=== PATIENT | female | born 2000 | race Caucasian/White ===

== ENCOUNTER → 2021-02-25 | Outpatient (REF) | payer OTHER ==
[2021-02-25 14:17] LABS: HEMATOCRIT 39.1 % (36.0-47.0); MEAN CORPUSCULAR HEMOGLOBIN 31.7 pg (27.0-33.0); MEAN CORPUSCULAR HGB CONC 33.2 g/dl (32.0-36.5); MEAN CORPUSCULAR VOLUME 95.4 fl (80.0-96.0); PLATELET COUNT, AUTOMATED 285 10^3/uL (150-450); WHITE BLOOD COUNT 10.7 10^3/uL (4.0-10.0)
[2021-02-25 15:20] LABS: CHLAMYDIA DNA AMPLIFICATION NEGATIVE (NEGATIVE); GC DNA AMPLIFICATION NEGATIVE (NEGATIVE)
[2021-02-28 08:11] LABS: HEPATITIS C VIRUS ABY INDEX < 0.0 INDEX (<0.8); HIV 1&2 SCREEN CENTAUR NEGATIVE (NEGATIVE)
== END ==
LOC: M PLALAB 11:28
PROVIDERS: ATTEND Obstetrics & Gynecology
DX: Z34.01 Encounter for supervision of normal first pregnancy, first trimester (principal); Z36.89 Encounter for other specified antenatal screening

== ENCOUNTER → 2021-04-27 | Outpatient (CLI) | payer BC ==
--- NOTE | 2021-04-27 09:25 | REP ---
INDICATION: ANATOMY. . COMPARISON: None. TECHNIQUE: Transabdominal obstetric sonography. FINDINGS: Scanning through the gravid uterus demonstrates a viable single intrauterine gestation in variable lie. motion is observed and heart rate is recorded at 143 beats per minute. A posterior placenta is seen, grade 0, without evidence of placenta previa. Closed cervical length is measured at 3.2 cm transabdominally. No extrauterine abnormality is observed. Amniotic fluid is subjectively normal. No anomaly is seen. The following anatomic structures are identified and felt to be sonographically unremarkable: cranium, choroid plexus, cavum, cerebellum and posterior fossa, face and profile, lungs, four-chamber heart with left and right ventricular outflow tract views, diaphragm, left-sided stomach, abdominal wall cord insertion, three-vessel umbilical cord, kidneys and bladder, spine, and upper and lower extremities. Biometry chart: BPD 4.4 cm, 19 weeks 1 day Head circumference 16.0 cm, 18 weeks 6 days Abdominal circumference 13.5 cm, 19 weeks 0 days Femur length 2.8 cm, 18 weeks 5 days Humeral length 2.8 cm, 19 weeks 0 days HC AC ratio normal 1.18 Cephalic index normal 0.76 Estimated weight 260 g, 0 lb 9 oz, 45th percentile for 18 weeks 6 days IMPRESSION: Viable single intrauterine gestation at 19 weeks 0 days by today's composite sonographic criteria. SAMIRA by today's sonography September 21, 2021. No complication identified. Expected gestational age estimate from known SAMIRA of September 22, 2021 is 18 weeks 6 days <Electronically signed by Edvin Little > 04/27/21 0927
== END ==
LOC: M WHC 07:57
PROVIDERS: ATTEND Obstetrics & Gynecology
DX: Z34.02 Encounter for supervision of normal first pregnancy, second trimester (principal); Z36.89 Encounter for other specified antenatal screening; Z3A.19 19 weeks gestation of pregnancy

== ENCOUNTER → 2021-05-03 | Outpatient (REF) | payer OTHER | LOC: M SFHCWAGY 12:58 | PROVIDERS: ATTEND Advanced Practice Midwife | DX: N39.0 Urinary tract infection, site not specified (principal) ==

== ENCOUNTER → 2021-06-09 | Outpatient (REF) | payer OTHER | LOC: M SFHCWAGY 16:33 | PROVIDERS: ATTEND Obstetrics & Gynecology | DX: Z34.02 Encounter for supervision of normal first pregnancy, second trimester (principal); Z3A.00 Weeks of gestation of pregnancy not specified ==

== ENCOUNTER → 2021-07-04 | Outpatient (CLI) | payer BC, OTHER ==
[2021-07-04 14:41] LABS: HEMATOCRIT 33.3 % (36.0-47.0); HEMOGLOBIN 10.9 g/dl (12.0-15.5); MEAN CORPUSCULAR HEMOGLOBIN 31.2 pg (27.0-33.0); MEAN CORPUSCULAR HGB CONC 32.7 g/dl (32.0-36.5); MEAN CORPUSCULAR VOLUME 95.4 fl (80.0-96.0); PLATELET COUNT, AUTOMATED 224 10^3/uL (150-450); RED BLOOD COUNT 3.49 10^6/uL (4.00-5.40)
== END ==
LOC: M PLALAB 10:12
PROVIDERS: ATTEND Obstetrics & Gynecology
DX: Z34.02 Encounter for supervision of normal first pregnancy, second trimester (principal); Z36.89 Encounter for other specified antenatal screening

== ENCOUNTER → 2021-07-04 | Outpatient (REF) | payer BC, OTHER | LOC: M SFHCWAGY 13:17 | PROVIDERS: ATTEND Advanced Practice Midwife | DX: O23.40 Unspecified infection of urinary tract in pregnancy, unspecified trimester (principal); Z3A.26 26 weeks gestation of pregnancy ==

== ENCOUNTER → 2021-08-24 | Outpatient (REF) | payer BC, OTHER | LOC: M SFHCWAGY 12:37 | PROVIDERS: ATTEND Advanced Practice Midwife | DX: Z34.03 Encounter for supervision of normal first pregnancy, third trimester (principal) ==

== ENCOUNTER 2021-09-23 14:55 | Inpatient (IN) | payer BC, OTHER ==
[2021-09-23] VITALS (16 sets, daily range): BP systolic 97–170; BP diastolic 56–101
[~2021-09-23] VITALS: Ht 162.6 cm; Wt 65.2 kg
--- OUTSIDE RECORDS SUMMARY | 2021-09-23 15:00 | CCD ---
Author Author [facility] Organization [facility] Address Unknown Phone Unavailable Care Team Providers Care Photographer Apprentice Name Role Phone Dmitriy Harvey Unavailable PROBLEMS Type Condition ICD9-CM Code [id number] Code Onset Dates Condition S tatus W/U Status Risk SNOMED Code Notes Problem Supervision of other normal Z34.80 Ac tive confirm [id number] ALLERGIES Allergen (clinical drug ingredient) Drug/Non Drug Allergy do cumented on EMR Reaction Allergy Type Onset Date Status amoxicillin / clavulanate Augmentin([facility] Code:[address]-92) Unkn own Drug Allergy Active ENCOUNTERS from 1998 to 2021-09-17 Encounter Location Date Provider Diagnosis [facility] [address] [place] [address] [place] [address] Sep, Dmitriy Harvey Encounter for superv ision of normal first in third trimester Z34.03 and 38 weeks gestation of Z3A.38 IMMUNIZATIONS Vaccine Route Administration Date Status TDAP 0.5mL Boostrix IM Intramuscular Jul 19, 2021 Administere d SOCIAL HISTORY Tobacco Use: Social History Observation Description Date Details (start date - stop date) Never Smoker Sex Assigned At : Social History Observation Description Sex Assigned At Unknown Domestic Violence: Question Answer Notes Status: No history of abuse Alcohol Screening: Question Answer Notes Did you have a drink containing alcohol in the past year? No Points 0 Interpretation Negative Tobacco Use: Question Answer Notes Are you a: never smoker REASON FOR REFERRAL No Information VITAL SIGNS Weight 142.0 lbs Sep, Weight-kg 64.41 kg Sep, Height 64 in Sep, BMI 24.374 kg/m2 Sep, Blood pressure systolic 116 mm Hg Sep, Blood pressure diastolic 80 mm Hg Sep, MEDICATIONS Medication SIG (Take, Route, Frequency, Duration) Notes Start Da te End Date Status Macrobid 100 MG capsule Orally BID for 7 days March, Not-Taking 27-1 MG 1 tablet Orally Once a day Active Cephalexin 500 MG 1 capsule Orally every 8 hours for 7 days May, Not-Taking Nitrofurantoin Macrocrystal 100 MG 1 capsule at bedtim e with food or milk Orally bid for 7 days Feb, Not-Taking Macrobid 100 MG 1 capsule at bedtime with food Orally BID for 7 days Jun, Not-Taking PROCEDURES No Information RESULTS No Results REASON FOR VISIT 1 WK PN MEDICAL (GENERAL) HISTORY Type Description Date Surgical History Bilateral tympanostomy 01/31/2000 Hospitalization History surgery Goals Section No Information Health Concerns No Information MEDICAL EQUIPMENT No Information MENTAL STATUS No Information FUNCTIONAL STATUS No Information ASSESSMENTS Encounter Date Diagnosis Assessment Notes Treatment Notes Treatm ent Clinical Notes Sep, Encounter for supervision of normal first in third trimester (ICD-10 - Z34.03) Sep, 38 weeks gestation of (ICD-10 - Z3A.38 ) PLAN OF TREATMENT Next Appt Details Provider Name:Ras Vaughan, 09:00:00 AM, [address] [facility], , [place], [address], Insurance Providers Payer Name Payer Address Payer Phone Insured Name Patient Relati onship to Insured Coverage Start Date Coverage End Date [facility] [address] [facility] [id number] [place]
--- OUTSIDE RECORDS SUMMARY | 2021-09-23 15:00 | CCD ---
Author Author [facility] Organization [facility] Address Unknown Phone Unavailable Care Team Providers Care Reel Cutter Name Role Phone Alexus Ras Unavailable PROBLEMS Type Condition ICD9-CM Code [id number] Code Onset Dates Condition S tatus W/U Status Risk SNOMED Code Notes Problem Supervision of other normal Z34.80 Ac tive confirm [id number] ALLERGIES Allergen (clinical drug ingredient) Drug/Non Drug Allergy do cumented on EMR Reaction Allergy Type Onset Date Status amoxicillin / clavulanate Augmentin([facility] Code:[address]-19) Unkn own Drug Allergy Active ENCOUNTERS from 1998 to 2021-07-12 Encounter Location Date Provider Diagnosis [facility] [address] [place] [address] [place] [address] Jul, Ras Vaughan IMMUNIZATIONS No Information SOCIAL HISTORY Tobacco Use: Social History Observation [...] REASON FOR REFERRAL No Information VITAL SIGNS No information MEDICATIONS Medication SIG (Take, Route, Frequency, Duration) Notes Start Da te End Date Status Cephalexin 500 MG 1 capsule Orally every 8 hours for 7 days May, Not-Taking Nitrofurantoin Macrocrystal 100 MG 1 capsule at bedtim e with food or milk Orally bid for 7 days Feb, Not-Taking 27-1 MG 1 tablet Orally Once a day Active Macrobid 100 MG 1 capsule at bedtime with food Orally BID for 7 days Jun, Not-Taking Macrobid 100 MG capsule Orally BID for 7 days March, Not-Taking PROCEDURES No Information RESULTS No Results REASON FOR VISIT Results MEDICAL (GENERAL) HISTORY Type Description Date Surgical History Bilateral tympanostomy 01/31/2000 Hospitalization History surgery Goals Section No Information Health Concerns No Information MEDICAL EQUIPMENT No Information MENTAL STATUS No Information FUNCTIONAL STATUS No Information ASSESSMENTS No Information PLAN OF TREATMENT Next Appt Details Provider Name:Mae Caro, 2021-07-06 4 08:00:00 AM, [address] [facility], , [place], [address], Insurance Providers Payer Name Payer Address Payer Phone Insured Name Patient Relati onship to Insured Coverage Start Date Coverage End Date [facility] [address] [facility] [id number] [place]
--- OUTSIDE RECORDS SUMMARY | 2021-09-23 15:00 | CCD | Continuity of Care Document ---
Author Author [facility] Organization [facility] Address Unknown Phone Unavailable Care Team Providers Care Air Tool Operator Name Role Phone Sheree Castaneda MD Unavailable Unavailable Allergies, Adverse Reactions, Alerts Substance Reaction Status Criticality POTASSIUM CLAVULANATE Hives/Skin Rash Active No Informa tion AMOXICILLIN TRIHYDRATE Hives/Skin Rash Active No Inform ation Medications Medication Instructions Dosage Effective Dates (start - stop) Sta tus Comments Sushma 24 Fe 1 mg-20 mcg (24)/75 mg (4) tablet take 1 t ablet by oral route every day 1.00 tablet - Active iron 18 mg tablet - Active Problems Condition Effective Dates (start - stop) Clinical Status C omments Human immunodeficiency virus [HIV] counseling Encounter for test, result negative Encounter for oth general cnsl and advice on contraception Encounter for surveillance of contraceptive pills Encntr for embedded processor exam (general) (routine) w/o abn findings Human immunodeficiency virus [HIV] counseling Encounter for oth general cnsl and advice on contraception Encounter for surveillance of contraceptive pills Encntr for embedded processor exam (general) (routine) w/o abn findings Human immunodeficiency virus [HIV] counseling Encounter for oth general cnsl and advice on contraception Encounter for surveillance of contraceptive pills Encntr for embedded processor exam (general) (routine) w/o abn findings Encounter for test, result negative Human immunodeficiency virus [HIV] counseling Encntr screen for infections w sexl mode of transmiss High risk heterosexual behavior Encounter for oth general cnsl and advice on contraception Encounter for initial prescription of contraceptive pills Procedures Procedure Date No Information Results Test Name Date and Time Measure Units Reference Range Abnormal Flag St atus Comments No Information Advance Directives Directive Yes / No Effective Date File Name No Information Encounters Encounter Description Practice Location Reason(s) For Visit Diagnose s Date Provider Providers Copied on Encounter [facility] [place], [address] [place], [place], [id number], [place] tel:[phone] NATE Mir No Information Leonel Bentley. [address] [place], [place], [id number], [place]. tel:[phone] [facility] [place], [address], [place], [id number], [place] tel:[phone] [facility] [place] Human immunodeficie ncy virus [HIV] counselingEncounter for test, result negativeEncounter for oth general cnsl and advice on contraceptionEncounter for surveillance of contraceptive pillsEncntr for embedded processor exam (general) (routine) w/o abn findings Stephenie Song. [address] [place], [place], [id number], [place]. tel:[phone] Referring Provider: Nohemi Casiano, [address], [place], [id number]. tel:[phone] [facility] [place], [address], [place], [id number], [place] tel:[phone] [facility] [place] Human immunodeficie ncy virus [HIV] counselingEncounter for oth general cnsl and advice on contraceptionEncounter for surveillance of contraceptive pillsEncntr for embedded processor exam (general) (routine) w/o abn findings Stephenie Song. [address] [place], [place], [id number], [place]. tel:[phone] Referring Provider: Nohemi Casiano, [address], [place], [id number]. tel:[phone] [facility] [place], [address] [place] [address], [id number], [place] tel:[phone] [facility] Human immunodeficie ncy virus [HIV] counselingEncounter for oth general cnsl and advice on contraceptionEncounter for surveillance of contraceptive pillsEncntr for embedded processor exam (general) (routine) w/o abn findings Nick Cleary. [address] [place], [place], [id number], [place]. tel:[phone] Referring Provider: Madiha Romero, [address] [place], [place], [id number]. tel:[phone] [facility], [address], [place], [id number], [place] tel:[phone] [facility] Encounter for pregn juan test, result negativeHuman immunodeficiency virus [HIV] counselingEncntr screen for infections w sexl mode of transmissHigh risk heterosexual behaviorEncounter for oth general cnsl and advice on contraceptionEncounter for initial prescription of contraceptive pills Nick Cleary. [address] [place], [place], [id number], [place]. tel:[phone] Referring Provider: Madiha Romero, [address] [place], [place], [id number]. tel:[phone] Family History Family Member Diagnosis Age At Onset 1st degree relative No hx of cancer of breast, colon, endome trium or ovary 1st degree relative No hx of osteoporosis 1st degree relative No hx of venous thromboembolism 1st degree relative No hx of coronary heart disease (female <65, male <55) Father Cancer, colon Father Hypertension Father Cancer, colon 51 Immunizations Vaccine Date Status Comments No Information Payers Payer name Insurance type Covered green party ID Authorization(s ) [facility] CI [id number] Social History Type Description Quantity Date Captured Comments Sex Female Smoking Status No Information Vital Signs Date / Time: Height Weight BMI Pulse Rate Blood Pressure Temperatu re Respiratory Rate Body Surface Area Head Circumference BMI percentile Pulse Ox In haled Ox No Information Chief Complaint And Reason For Visit No Information Reason For Referral Reason For Referral No Information Plan Of Treatment Date Type Action Status No Information History Of Present Illness Encounter Date Complaint History Of Present I llness No Information Functional Status Date Functional Assessment No Information Medications Administered Medication Instructions Dosage Effective Dates (start - stop) Sta tus Comments No Information Instructions Date Instruction Additional Informati on No Information Assessments Type Assessment Date No Information Goals Health Concern Goal Type Priority Status Date No Information Medical Equipment Description Device [place] Device Identifier Effective Raul es (start - stop) Status No Information Mental Status Date Cognitive Assessment No Information Health Concerns Observation Date No Information Concern Status Date No Information Physical Examination Exam Findings Details No Information
--- OUTSIDE RECORDS SUMMARY | 2021-09-23 15:00 | CCD ---
Author Author [facility] Organization [facility] Address Unknown Phone Unavailable Care Team Providers Care Supply Chain Business Analyst Name Role Phone Dmitriy Harvey Unavailable PROBLEMS Type Condition ICD9-CM Code [id number] Code Onset Dates Condition S tatus W/U Status Risk SNOMED Code Notes Problem Supervision of other normal Z34.80 Ac tive confirm [id number] ALLERGIES Allergen (clinical drug ingredient) Drug/Non Drug Allergy do cumented on EMR Reaction Allergy Type Onset Date Status amoxicillin / clavulanate Augmentin([facility] Code:[address]-76) Unkn own Drug Allergy Active ENCOUNTERS from 1998 to 2021-08-09 Encounter Location Date Provider Diagnosis [facility] [address] [place] [address] [place] [address] Jul, Dmitriy Harvey Encounter for superv ision of normal first , third trimester Z34.03 and 32 weeks gestation of Z3A.32 IMMUNIZATIONS Vaccine Route Administration Date Status TDAP [...] FOR REFERRAL No Information VITAL SIGNS Weight 137.2 lbs Jul, Height 64 in Jul, BMI 23.55 kg/m2 Jul, Blood pressure systolic 118 mm Hg Jul, Blood pressure diastolic 72 mm Hg Jul, MEDICATIONS Medication SIG (Take, Route, Frequency, Duration) Notes Start Da te End Date Status Cephalexin 500 MG 1 capsule Orally every 8 hours for 7 days May, Not-Taking Macrobid 100 MG capsule Orally BID for 7 days March, Not-Taking 27-1 MG 1 tablet Orally Once a day Active Macrobid 100 MG 1 capsule at bedtime with food Orally BID for 7 days Jun, Not-Taking Nitrofurantoin Macrocrystal 100 MG 1 capsule at bedtim e with food or milk Orally bid for 7 days Feb, Not-Taking PROCEDURES No Information RESULTS No Results REASON FOR VISIT 2 WK PN MEDICAL (GENERAL) HISTORY Type Description Date Surgical History Bilateral tympanostomy 01/31/2000 Hospitalization History surgery Goals Section No Information Health Concerns No Information MEDICAL EQUIPMENT No Information MENTAL STATUS No Information FUNCTIONAL STATUS No Information ASSESSMENTS Encounter Date Diagnosis Assessment Notes Treatment Notes Treatm ent Clinical Notes Jul, Encounter for supervision of normal first , third trimester (ICD-10 - Z34.03) Jul, 32 weeks gestation of (ICD-10 - Z3A.32 ) PLAN OF TREATMENT Next Appt Details Provider Name:Linda Hallman, 2021-08-17 08:40:00 AM, [address] [place] [address], [place], [address], Provider Name:Linda Hallman, 2021-08-24 08:40:00 AM, [address] [place] [address], [place], [address], Provider Name:Linda Hallman, 2021-09-01 08:40:00 AM, [address] [place] [address], [place], [address], Provider Name:Dmitriy Harvey, 2021-09-08 08:15:00 AM, [address] [place] [address], [place], [address], Provider Name:Dmitriy Harvey 2021-09-15 08:15:00 AM, [address] [facility], , [place], [address], Provider Name:Ras Vaughan, 09:00:00 AM, [address] [facility], , [place], [address], Insurance Providers Payer Name Payer Address Payer Phone Insured Name Patient Relati onship to Insured Coverage Start Date Coverage End Date [facility] [address] [facility] [id number] [employer]
--- OUTSIDE RECORDS SUMMARY | 2021-09-23 15:00 | CCD ---
Author Author [facility] Organization [facility] Address Unknown Phone Unavailable Care Team Providers Care Accounting Manager Name Role Phone Chaim DUVAL Unavailable Unavailable LETTIERE, Chaim BARRIENTOS Unavailable Unavailable LETTIERE, Chaim BARRIENTOS Unavailable Unavailable LETTIERE, Chaim BARRIENTOS Unavailable Unavailable LETTIERE, Chaim BARRIENTOS Unavailable Unavailable LETTIERE, Chaim BARRIENTOS Unavailable Unavailable LETTIERE, Chaim BARRIENTOS Unavailable Unavailable LETTIERE, Chaim BARRIENTOS Unavailable Unavailable LETTIERE, Chaim BARRIENTOS Unavailable Unavailable LETTIERE, Chaim BARRIENTOS Unavailable Unavailable LETTIERE, Chaim BECKFORD PA Unavailable Unavailable LETTIERE, Chaim BECKFORD PA Unavailable Unavailable LETTIERE, Chaim BECKFORD PA Unavailable Unavailable LETTIERE, Chaim BARRIENTOS Unavailable Unavailable LETTIERE, Chaim BARRIENTOS Unavailable Unavailable LETTIERE, Chaim BARRIENTOS Unavailable Unavailable LETTIERE, Chaim BARRIENTOS Unavailable Unavailable LETTIERE, Chaim BECKFORD PA Unavailable Unavailable LETTIERE, Chaim BARRIENTOS Unavailable Unavailable LETTIERE, Chaim BARRIENTOS Unavailable Unavailable LETTIERE, Chaim BARRIENTOS Unavailable Unavailable LETTIERE, A ANALY PA Unavailable Unavailable LETTIERE, A ANALY PA Unavailable Unavailable LETTIERE, A ANALY PA Unavailable Unavailable LETTIERE, A ANALY PA Unavailable Unavailable LETTIERE, A ANALY PA Unavailable Unavailable LETTIERE, A ANALY PA Unavailable Unavailable LETTIERE, A ANALY PA Unavailable Unavailable LETTIERE, A ANALY PA Unavailable Unavailable LETTIERE, A ANALY PA Unavailable Unavailable LETTIERE, A ANALY PA Unavailable Unavailable Dionisio LOVE MD Unavailable Unavailable Dionisio LOVE MD Unavailable Unavailable Dionisio LOVE MD Unavailable Unavailable Dioniiso LOVE MD Unavailable Unavailable Dionisio LOVE MD Unavailable Unavailable Dionisio LOVE MD Unavailable Unavailable Dionisio LOVE MD Unavailable Unavailable Dionisio LOVE MD Unavailable Unavailable Dionisio LOVE MD Unavailable Unavailable Dionisio LOVE MD Unavailable Unavailable Dionisio LOVE MD Unavailable Unavailable Dionisio LOVE MD Unavailable Unavailable Dionisio LOVE MD Unavailable Unavailable Dionisio LOVE MD Unavailable Unavailable Dionisio LOVE MD Unavailable Unavailable Dionisio LOVE MD Unavailable Unavailable Dionisio LOVE MD Unavailable Unavailable Dionisio LOVE MD Unavailable Unavailable Dionisio LOVE MD Unavailable Unavailable Dionisio LOVE MD Unavailable Unavailable Dionisio LOVE MD Unavailable Unavailable Dionisio LOVE MD Unavailable Unavailable Dionisio LOVE MD Unavailable Unavailable Dionisio LOVE MD Unavailable Unavailable Chaim Castaneda MD Unavailable Unavailable Chaim Castaneda MD Unavailable Unavailable Chaim Castaneda MD Unavailable Unavailable Chaim Castaneda MD Unavailable Unavailable Chaim Castaneda MD Unavailable Unavailable Chaim Castaneda MD Unavailable Unavailable Chaim Castaneda MD Unavailable Unavailable Chaim Castaneda MD Unavailable Unavailable Chaim Castaneda MD Unavailable Unavailable Chaim Castaneda MD Unavailable Unavailable Chaim Castaneda MD Unavailable Unavailable Chaim Castaneda MD Unavailable Unavailable Chaim Castaneda MD Unavailable Unavailable Chaim Castaneda MD Unavailable Unavailable Chaim Castaneda MD Unavailable Unavailable Chaim Castaneda MD Unavailable Unavailable Chaim Castaneda MD Unavailable Unavailable Chaim Castaneda MD Unavailable Unavailable Chaim Castaneda MD Unavailable Unavailable Chaim Castaneda MD Unavailable Unavailable Chaim Castaneda MD Unavailable Unavailable Chaim Castaneda MD Unavailable Unavailable Leonel, Chaim Bentley MD Unavailable Unavailable Leonel, Chaim Bentley MD Unavailable Unavailable Leonel, Chaim Bentley MD Unavailable Unavailable Leonel, Chaim Bentley MD Unavailable Unavailable Leonel, Chaim Bentley MD Unavailable Unavailable Leonel, Chaim Bentley MD Unavailable Unavailable Leonel, Chaim Bentley MD Unavailable Unavailable Leonel, Chaim Bentley MD Unavailable Unavailable Leonel, Chaim Bentley MD Unavailable Unavailable Leonel, Chaim Bentley MD Unavailable Unavailable Leonel, Chaim Bentley MD Unavailable Unavailable Leonel, Chaim Bentley MD Unavailable Unavailable Leonel, Chaim Bentley MD Unavailable Unavailable Leonel, Chaim Bentley MD Unavailable Unavailable Leonel, Chaim Bentley MD Unavailable Unavailable Leonel, Chaim Bentley MD Unavailable Unavailable Leonel, Chaim Bentley MD Unavailable Unavailable Leonel, Chaim Bentley MD Unavailable Unavailable Leonel, Chaim Bentley MD Unavailable Unavailable Leonel, Chaim Bentley MD Unavailable Unavailable Leonel, Chaim Bentley MD Unavailable Unavailable Leonel, Chaim Bentley MD Unavailable Unavailable Leonel, Chaim Bentley MD Unavailable Unavailable Leonel, Chaim Bentley MD Unavailable Unavailable Leonel, Chaim Bentley MD Unavailable Unavailable Leonel, Chaim Bentley MD Unavailable Unavailable Leonel, Chaim Bentley MD Unavailable Unavailable Leonel, Chaim Bentley MD Unavailable Unavailable Leonel, hCaim Bentley MD Unavailable Unavailable Leonel, Chaim Bentley MD Unavailable Unavailable Leonel, Chaim Bentley MD Unavailable Unavailable Leonel, Chaim Bentley MD Unavailable Unavailable Leonel, Chaim Bentley MD Unavailable Unavailable Leonel, Chaim Bentley MD Unavailable Unavailable Leonel, Chaim Bentley MD Unavailable Unavailable Leonel, Chaim Bentley MD Unavailable Unavailable Leonel, Chaim Bentely MD Unavailable Unavailable Leonel, Chaim Bentley MD Unavailable Unavailable Leonel, Chaim Bentley MD Unavailable Unavailable Leonel, Chaim Bentley MD Unavailable Unavailable Leonel, Chaim Bentley MD Unavailable Unavailable Leonel, Chaim Bentley MD Unavailable Unavailable Leonel, Chaim Bentley MD Unavailable Unavailable Leonel, Chaim Bentley MD Unavailable Unavailable Leonel, Chaim Bentley MD Unavailable Unavailable Leonel, Chaim Bentley MD Unavailable Unavailable Leonel, Chaim Bentley MD Unavailable Unavailable Leonel, Chaim Bentley MD Unavailable Unavailable Leonel, Chaim Bentley MD Unavailable Unavailable Leonel, Chaim Bentley MD Unavailable Unavailable Leonel, Chaim Bentley MD Unavailable Unavailable Leonel, Chaim Bentley MD Unavailable Unavailable Leonel, Chaim Bentley MD Unavailable Unavailable Leonel, Chaim Bentley MD Unavailable Unavailable Leonel, Chaim Bentley MD Unavailable Unavailable Leonel, Chaim Bentley MD Unavailable Unavailable Leonel, Chaim Bentley MD Unavailable Unavailable Leonel, Chaim Bentley MD Unavailable Unavailable Leonel, Chaim Bentley MD Unavailable Unavailable Leonel, Chaim Bentley MD Unavailable Unavailable Re-disclosure Warning The records that you are about to access may contain information from federally-assisted alcohol or drug abuse programs. If such information is present, then the following federally mandated warning applies: This information has been disclosed to you from records protected by federal confidentiality rules (42 CFR part 2). The federal rules prohibit you from making any further disclosure of this information unless further disclosure is expressly permitted by the written consent of the person to whom it pertains or as otherwise permitted by 42 CFR part 2. A general authorization for the release of medical or other information is NOT sufficient for this purpose. The Federal rules restrict any use of the information to criminally investigate or prosecute any alcohol or drug abuse patient.The records that you are about to access may contain highly sensitive health information, the redisclosure of which is protected by Article 27-F of the [facility] Public Health law. If you continue you may have access to information: Regarding HIV / AIDS; Provided by facilities licensed or operated by the [facility] Office of Mental Health; or Provided by the [facility] Office for People With Developmental Disabilities. If such information is present, then the following [facility] mandated warning applies: This information has been disclosed to you from confidential records which are protected by state law. State law prohibits you from making any further disclosure of this information without the specific written consent of the person to whom it pertains, or as otherwise permitted by law. Any unauthorized further disclosure in violation of state law may result in a fine or residential sentence or both. A general authorization for the release of medical or other information is NOT sufficient authorization for further disc losure. Family History Family Member Name Family Member Gender Family Member Status Date o f Status Description Data Source(s) Unknown Male Diagnosis 07/15/2020 12:00:00 AM EDT [facility] ([facility]) Unknown Male Diagnosis 05/29/2019 12:00:00 AM EDT [facility] ([facility]) Unknown Male Diagnosis 11/06/2017 12:00:00 AM EST [facility]Gen ([facility]) Unknown Unknown Problem MEDENT ([facility]) Encounters Encounter Providers Location Date Indications Data Source(s ) ( ESTOB) [facility] [address] [place] [address] 09/15/2021 12:00:00 AM EST eCW1 ([facility]) ( ESTOB) enter Est OB [address] [place] [address] 09/08/2021 12:00:00 AM EDT eCW1 ([facility]) Attender: Sheree Castaneda MD [facility] 1 09:57:00 AM EDT - 08/16/2021 09:57:00 AM EDT NextGen ([facility]) ( ESTOB) [facility] Est [facility] [address] [place] [address] 08/03/2021 12:00:00 AM EDT eCW1 ([facility]) ( ESTOB) enter Est OB [address] [place] [address] 07/19/2021 12:00:00 AM EDT eCW1 ([facility]) Outpatient Attender: ANALY caruso 07/10/2021 03:50:00 PM EDT [facility] ([facility]) [place] [address] [facility] [address] 07/08/2021 12:00:00 AM EDT eCW1 ([facility]) ( ESTOB) enter Est OB [address] [place] [address] 07/04/2021 12:00:00 AM EDT eCW1 ([facility]) [place] [address] [facility] [place] [address] 06/13/2021 12:00:00 AM EDT eCW1 ([facility]) ( ESTOB) [facility] Est [facility] [address] [place] [address] 06/09/2021 12:00:00 AM EDT eCW1 ([facility]) Unknown [address] [facility] [place] [address] 05/05/2021 12:00:00 AM EDT eCW1 ([facility]) ( ESTOB) enter Est OB [address] [place] [address] 05/03/2021 12:00:00 AM EDT eCW1 ([facility]) (WC ESTOB) [facility] Est [facility] [address] [place] [address] 04/05/2021 12:00:00 AM EDT eCW1 ([facility]) [place] [address] [facility] [address] 04/01/2021 12:00:00 AM EDT eCW1 ([facility]) Outpatient Attender: CAYLA LOVE MD 03/11 09:19:03 AM EDT - 03/11/2021 10:50:32 AM EDT DocuTap ([facility] ) (WC ESTOB) [facility] Est OB [address] [place] [address] 03/07/2021 12:00:00 AM EDT eCW1 ([facility]) [place] [address] [facility] [address] 02/28/2021 12:00:00 AM EDT eCW1 ([facility]) Unknown [address] [facility] [place] [address] 02/07/2021 12:00:00 AM EDT eCW1 ([facility]) ( ESTOB) enter Est OB [address] [place] [address] 02/07/2021 12:00:00 AM EDT eCW1 ([facility]) Att[facility]: [facility] 11:56:00 AM EDT - 08/16/2020 11:56:00 AM EDT NextGen ([facility]) Immunizations Vaccine Date Status Description Data Source(s) Tdap 07/19/2021 08:43:00 AM EDT completed e CW1 ([facility]) Tdap 07/19/2021 08:43:00 AM EDT completed e CW1 ([facility]) Tdap 07/19/2021 08:43:00 AM EDT completed e CW1 ([facility]) Tdap 07/19/2021 08:43:00 AM EDT completed e CW1 ([facility]) Tdap 07/19/2021 08:43:00 AM EDT completed e CW1 ([facility]) Medications Medication Brand Name Start Date Product Form Dose Route Admi nistrative Instructions Pharmacy Instructions Status Indications Reaction Description Data Source(s) NITROFURANTOIN, MACROCRYSTALS 25 MG / Ni trofurantoin, Monohydrate 75 MG Oral Capsule [Macrobid] Macrobid 100 MG Macrobid 100 MG 06/13/2021 12:00:00 AM EDT active Macrobid 100 MG eCW1 ([facility]) NITROFURANTOIN, MACROCRYSTALS 25 MG / Ni trofurantoin, Monohydrate 75 MG Oral Capsule [Macrobid] Macrobid 100 MG Macrobid 100 MG 06/13/2021 12:00:00 AM EDT suspended Macrobid 100 MG eCW1 ( [facility]) NITROFURANTOIN, MACROCRYSTALS 25 MG / Ni trofurantoin, Monohydrate 75 MG Oral Capsule [Macrobid] Macrobid 100 MG Macrobid 100 MG 06/13/2021 12:00:00 AM EDT suspended Macrobid 100 MG eCW1 ( [facility]) NITROFURANTOIN, MACROCRYSTALS 25 MG / Ni trofurantoin, Monohydrate 75 MG Oral Capsule [Macrobid] Macrobid 100 MG Macrobid 100 MG 06/13/2021 12:00:00 AM EDT suspended Macrobid 100 MG eCW1 ( [facility]) NITROFURANTOIN, MACROCRYSTALS 25 MG / Ni trofurantoin, Monohydrate 75 MG Oral Capsule [Macrobid] Macrobid 100 MG Macrobid 100 MG 06/13/2021 12:00:00 AM EDT active Macrobid 100 MG eCW1 ([facility]) NITROFURANTOIN, MACROCRYSTALS 25 MG / Ni trofurantoin, Monohydrate 75 MG Oral Capsule 100 mg NITROFURANTOIN [id number]/[id number] 06/13/2021 12:00:00 AM EDT ca psule 14 TAKE ONE CAPSULE BY MOUTH TWICE A DAY WITH FOOD FOR 7 DAYS TAKE ONE CAPSULE BY MOUTH TWICE A DAY WITH FOOD FOR 7 DAYS SOLD: 06/13/2021 [facility] NITROFURANTOIN, MACROCRYSTALS 25 MG / Ni trofurantoin, Monohydrate 75 MG Oral Capsule [Macrobid] Macrobid 100 MG Macrobid 100 MG 06/13/2021 12:00:00 AM EDT suspended Macrobid 100 MG eCW1 ( [facility]) NITROFURANTOIN, MACROCRYSTALS 25 MG / Ni trofurantoin, Monohydrate 75 MG Oral Capsule [Macrobid] Macrobid 100 MG Macrobid 100 MG 06/13/2021 12:00:00 AM EDT suspended Macrobid 100 MG eCW1 ( [facility]) NITROFURANTOIN, MACROCRYSTALS 25 MG / Ni trofurantoin, Monohydrate 75 MG Oral Capsule [Macrobid] Macrobid 100 MG Macrobid 100 MG 06/13/2021 12:00:00 AM EDT suspended Macrobid 100 MG eCW1 ( [facility]) Cephalexin 500 MG Oral Capsule Cephalexin 500 MG 05/05/2021 12:00:0 0 AM EDT 1.0 {capsule} suspended Cephalexin 500 M G eCW1 ([facility]) Cephalexin 500 MG Oral Capsule Cephalexin 500 MG 05/05/2021 12:00:0 0 AM EDT 1.0 {capsule} active Cephalexin 500 MG eCW1 ([facility]) Cephalexin 500 MG Oral Capsule Cephalexin 500 MG 05/05/2021 12:00:0 0 AM EDT 1.0 {capsule} suspended Cephalexin 500 M G eCW1 ([facility]) Cephalexin 500 MG Oral Capsule Cephalexin 500 MG 05/05/2021 12:00:0 0 AM EDT 1.0 {capsule} suspended Cephalexin 500 M G eCW1 ([facility]) Cephalexin 500 MG Oral Capsule Cephalexin 500 MG 05/05/2021 12:00:0 0 AM EDT 1.0 {capsule} suspended Cephalexin 500 M G eCW1 ([facility]) Cephalexin 500 MG Oral Capsule Cephalexin 500 MG 05/05/2021 12:00:0 0 AM EDT 1.0 {capsule} active Cephalexin 500 MG eCW1 ([facility]) Cephalexin 500 MG Oral Capsule Cephalexin 500 MG 05/05/2021 12:00:0 0 AM EDT 1.0 {capsule} suspended Cephalexin 500 M G eCW1 ([facility]) Cephalexin 500 MG Oral Capsule Cephalexin 500 MG 05/05/2021 12:00:0 0 AM EDT 1.0 {capsule} suspended Cephalexin 500 M G eCW1 ([facility]) Cephalexin 500 MG Oral Capsule Cephalexin 500 MG 05/05/2021 12:00:0 0 AM EDT 1.0 {capsule} active Cephalexin 500 MG eCW1 ([facility]) NITROFURANTOIN, MACROCRYSTALS 25 MG / Ni trofurantoin, Monohydrate 75 MG Oral Capsule [Macrobid] Macrobid 100 MG Macrobid 100 MG 03/07/2021 12:00:00 AM EDT active Macrobid 100 MG eCW1 ([facility]) NITROFURANTOIN, MACROCRYSTALS 25 MG / Ni trofurantoin, Monohydrate 75 MG Oral Capsule [Macrobid] Macrobid 100 MG Macrobid 100 MG 03/07/2021 12:00:00 AM EDT suspended Macrobid 100 MG eCW1 ( [facility]) NITROFURANTOIN, MACROCRYSTALS 25 MG / Ni trofurantoin, Monohydrate 75 MG Oral Capsule [Macrobid] Macrobid 100 MG Macrobid 100 MG 03/07/2021 12:00:00 AM EDT suspended Macrobid 100 MG eCW1 ( [facility]) NITROFURANTOIN, MACROCRYSTALS 25 MG / Ni trofurantoin, Monohydrate 75 MG Oral Capsule [Macrobid] Macrobid 100 MG Macrobid 100 MG 03/07/2021 12:00:00 AM EDT suspended Macrobid 100 MG eCW1 ( [facility]) NITROFURANTOIN, MACROCRYSTALS 25 MG / Ni trofurantoin, Monohydrate 75 MG Oral Capsule [Macrobid] Macrobid 100 MG Macrobid 100 MG 03/07/2021 12:00:00 AM EDT suspended Macrobid 100 MG eCW1 ( [facility]) NITROFURANTOIN, MACROCRYSTALS 25 MG / Ni trofurantoin, Monohydrate 75 MG Oral Capsule [Macrobid] Macrobid 100 MG Macrobid 100 MG 03/07/2021 12:00:00 AM EDT suspended Macrobid 100 MG eCW1 ( [facility]) NITROFURANTOIN, MACROCRYSTALS 25 MG / Ni trofurantoin, Monohydrate 75 MG Oral Capsule [Macrobid] Macrobid 100 MG Macrobid 100 MG 03/07/2021 12:00:00 AM EDT suspended Macrobid 100 MG eCW1 ( [facility]) NITROFURANTOIN, MACROCRYSTALS 25 MG / Ni trofurantoin, Monohydrate 75 MG Oral Capsule [Macrobid] Macrobid 100 MG Macrobid 100 MG 03/07/2021 12:00:00 AM EDT suspended Macrobid 100 MG eCW1 ( [facility]) NITROFURANTOIN, MACROCRYSTALS 25 MG / Ni trofurantoin, Monohydrate 75 MG Oral Capsule [Macrobid] Macrobid 100 MG Macrobid 100 MG 03/07/2021 12:00:00 AM EDT suspended Macrobid 100 MG eCW1 ( [facility]) NITROFURANTOIN, MACROCRYSTALS 25 MG / Ni trofurantoin, Monohydrate 75 MG Oral Capsule [Macrobid] Macrobid 100 MG Macrobid 100 MG 03/07/2021 12:00:00 AM EDT suspended Macrobid 100 MG eCW1 ( [facility]) NITROFURANTOIN, MACROCRYSTALS 25 MG / Ni trofurantoin, Monohydrate 75 MG Oral Capsule [Macrobid] Macrobid 100 MG Macrobid 100 MG 03/07/2021 12:00:00 AM EDT suspended Macrobid 100 MG eCW1 ( [facility]) NITROFURANTOIN, MACROCRYSTALS 25 MG / Ni trofurantoin, Monohydrate 75 MG Oral Capsule [Macrobid] Macrobid 100 MG Macrobid 100 MG 03/07/2021 12:00:00 AM EDT suspended Macrobid 100 MG eCW1 ( [facility]) NITROFURANTOIN, MACROCRYSTALS 25 MG / Ni trofurantoin, Monohydrate 75 MG Oral Capsule [Macrobid] Macrobid 100 MG Macrobid 100 MG 03/07/2021 12:00:00 AM EDT suspended Macrobid 100 MG eCW1 ( [facility]) NITROFURANTOIN, MACROCRYSTALS 25 MG / Ni trofurantoin, Monohydrate 75 MG Oral Capsule [Macrobid] Macrobid 100 MG Macrobid 100 MG 03/07/2021 12:00:00 AM EDT suspended Macrobid 100 MG eCW1 ( [facility]) NITROFURANTOIN, MACROCRYSTALS 100 MG Ora l Capsule Nitrofurantoin Macrocrystal 100 MG Nitrofurantoin Macrocrystal 100 MG 02/28/2021 12:00:00 AM EDT suspended Nitrofurantoin Macrocrystal 100 MG eCW1 ([facility]) NITROFURANTOIN, MACROCRYSTALS 100 MG Ora l Capsule Nitrofurantoin Macrocrystal 100 MG Nitrofurantoin Macrocrystal 100 MG 02/28/2021 12:00:00 AM EDT suspended Nitrofurantoin Macrocrystal 100 MG eCW1 ([facility]) NITROFURANTOIN, MACROCRYSTALS 100 MG Ora l Capsule Nitrofurantoin Macrocrystal 100 MG Nitrofurantoin Macrocrystal 100 MG 02/28/2021 12:00:00 AM EDT suspended Nitrofurantoin Macrocrystal 100 MG eCW1 ([facility]) NITROFURANTOIN, MACROCRYSTALS 100 MG Ora l Capsule Nitrofurantoin Macrocrystal 100 MG Nitrofurantoin Macrocrystal 100 MG 02/28/2021 12:00:00 AM EDT suspended Nitrofurantoin Macrocrystal 100 MG eCW1 ([facility]) NITROFURANTOIN, MACROCRYSTALS 100 MG Ora l Capsule Nitrofurantoin Macrocrystal 100 MG Nitrofurantoin Macrocrystal 100 MG 02/28/2021 12:00:00 AM EDT suspended Nitrofurantoin Macrocrystal 100 MG eCW1 ([facility]) 100 mg 02/28/2021 12:00:00 AM EDT capsule 14 TAKE ONE CAPSULE BY MOUTH TWICE A DAY WITH FOOD OR MILK TAKE ONE CAPSULE BY MOUTH TWICE A DAY WI TH FOOD OR MILK SOLD: 03/07/2021 [facility] NITROFURANTOIN, MACROCRYSTALS 100 MG Ora l Capsule Nitrofurantoin Macrocrystal 100 MG Nitrofurantoin Macrocrystal 100 MG 02/28/2021 12:00:00 AM EDT suspended Nitrofurantoin Macrocrystal 100 MG eCW1 ([facility]) NITROFURANTOIN, MACROCRYSTALS 100 MG Ora l Capsule Nitrofurantoin Macrocrystal 100 MG Nitrofurantoin Macrocrystal 100 MG 02/28/2021 12:00:00 AM EDT suspended Nitrofurantoin Macrocrystal 100 MG eCW1 ([facility]) NITROFURANTOIN, MACROCRYSTALS 100 MG Ora l Capsule Nitrofurantoin Macrocrystal 100 MG Nitrofurantoin Macrocrystal 100 MG 02/28/2021 12:00:00 AM EDT suspended Nitrofurantoin Macrocrystal 100 MG eCW1 ([facility]) NITROFURANTOIN, MACROCRYSTALS 100 MG Ora l Capsule Nitrofurantoin Macrocrystal 100 MG Nitrofurantoin Macrocrystal 100 MG 02/28/2021 12:00:00 AM EDT suspended Nitrofurantoin Macrocrystal 100 MG eCW1 ([facility]) NITROFURANTOIN, MACROCRYSTALS 100 MG Ora l Capsule Nitrofurantoin Macrocrystal 100 MG Nitrofurantoin Macrocrystal 100 MG 02/28/2021 12:00:00 AM EDT suspended Nitrofurantoin Macrocrystal 100 MG eCW1 ([facility]) NITROFURANTOIN, MACROCRYSTALS 100 MG Ora l Capsule Nitrofurantoin Macrocrystal 100 MG Nitrofurantoin Macrocrystal 100 MG 02/28/2021 12:00:00 AM EDT active Nitrofurantoin Macrocrystal 100 MG eCW1 ([facility]) NITROFURANTOIN, MACROCRYSTALS 100 MG Ora l Capsule Nitrofurantoin Macrocrystal 100 MG Nitrofurantoin Macrocrystal 100 MG 02/28/2021 12:00:00 AM EDT suspended Nitrofurantoin Macrocrystal 100 MG eCW1 ([facility]) NITROFURANTOIN, MACROCRYSTALS 100 MG Ora l Capsule Nitrofurantoin Macrocrystal 100 MG Nitrofurantoin Macrocrystal 100 MG 02/28/2021 12:00:00 AM EDT suspended Nitrofurantoin Macrocrystal 100 MG eCW1 ([facility]) NITROFURANTOIN, MACROCRYSTALS 100 MG Ora l Capsule Nitrofurantoin Macrocrystal 100 MG Nitrofurantoin Macrocrystal 100 MG 02/28/2021 12:00:00 AM EDT suspended Nitrofurantoin Macrocrystal 100 MG eCW1 ([facility]) NITROFURANTOIN, MACROCRYSTALS 100 MG Ora l Capsule Nitrofurantoin Macrocrystal 100 MG Nitrofurantoin Macrocrystal 100 MG 02/28/2021 12:00:00 AM EDT suspended Nitrofurantoin Macrocrystal 100 MG eCW1 ([facility]) Cyclobenzaprine hydrochloride 10 MG Oral Tablet CYCLOBENZAPR INE HCL 08/25/2020 12:00:00 AM EDT tablet 14 TAKE ONE TABLET BY MOUTH AT BEDTIME NEEDED FOR 14 DAYS TAKE ONE TABLET BY MOUTH AT BEDTIME NEEDED FOR 14 D AYS SOLD: 08/26/2020 [facility] 1 mg-20 mcg (24)/75 mg (4) 08/25/2020 12:00:00 AM EDT tablet 84 TAKE ONE TABLET BY MOUTH EVERY DAY TAKE ONE TABLET BY MOUTH EVERY DAY SOLD: 08/26/2020 [facility] Insurance Providers Payer name Policy type / Coverage type Policy ID Covered alliance party ID Covered alliance party's relationship to ruiz Policy Ruiz Plan Information [employer] [id number] Parent [id number] [facility] [id number] MO2 [id number] [facility] [id number] MO2 [id number] [facility] [id number] MO2 [id number] [facility] [id number] MO2 [id number] [employer] [place] [id number] PARENT [id number] [employer] BENEFITS HEALTH O [id number] [place] [facility] O [id number] S [phone] Intelligent Mobile Support Plan, [employer] [id number] Self [facility] (HMO) [address] O UNAVAILABLE UNAVAILA BLE [facility] [id number] [employer] [id number] MO2 [id number] Problems, Conditions, and Diagnoses Code Display Name Description Problem Type Effective Dates Data Source(s) Z34.80 care Supervision of other normal P sydni 02/03/2021 12:00:00 AM EDT eCW1 ([facility]) Surgeries/Procedures Procedure Description Date Indications Data Source(s) TDAP VACCINE 7/> YR IM 07/19/2021 12:00:00 AM EDT eCW1 ([facility]) OFFICE OUTPATIENT VISIT 15 MINUTES 07/10/2021 12:00:00 AM EDT MEDENT ([facility] [place], [facility]) Results ID Date Data Source [id number] 07/10/2021 12:00:00 AM EDT [facility] Name Value Range Interpretation Code Description Data Opal rce(s) Supporting Document(s) 2019 Novel Coronavirus RNA Negative [facility] This lab was reported by [facility]. ID Date Data Source URINE CULTURE 07/04/2021 12:00:00 AM EDT eCW1 ([facility]) Name Value Range Interpretation Code Description Data Opal rce(s) Supporting Document(s) URINE CULTURE eCW1 ([facility]) ID Date Data Source [id number] 03/12/2021 03:16:00 PM EDT [facility] Name Value Range Interpretation Code Description Data Opal rce(s) Supporting Document(s) COVID-19 RT-PCR NASAL SWAB Not Detected Not Detected [facility] A not detected (negative) test result fo r this test means that SARS-CoV-2 RNA was not present in the specimen above the limit ofdetection. Laboratory test results should always be considered in thecontext of clinical observations and epidemiological data in making afinal diagnosis and patient management decisions. Results will bereported to government agencies as required.This test has received Emergency Use Authorization (EUA). We will continue to follow federal and state requirements for COVID-19 reporting. This test has been authorized only for the detection of RNAfrom SARS-CoV-2 virus and diagnosis of SARS-CoV-2 virus infection, notfor any other viruses or pathogens. This test is only authorized for the duration of the declaration that circumstances exist justifying the authorization of the emergency use of in vitro diagnostic tests for detection of SARS-CoV-2 virus and/or diagnosis of SARS-CoV-2 virusinfection under section 564(b)(1) of the Act, 21 U.S.C. section 360bbb-3(b)(1), unless the authorization is terminated or revoked sooner. We will continue to follow federal and state requirements for both notification of results and any confirmatory testing that is required by another agency. This test was developed and its performance characteristics determined by [facility] and verified at [facility]. It has not been cleared or approved by the U.S. Food and Drug Administration for diagnostic use. This test has been authorized by FDA under an EUA for use by authorized laboratories. Results should be used in conjunction with clinical findings, and should not form the sole basis for a diagnosis or treatment decision. Methods: SARS-CoV-2 Multiplex RT-PCR Assay ID Date Data Source [id number] 03/11/2021 09:30:00 AM EDT [facility] Name Value Range Interpretation Code Description Data Opal rce(s) Supporting Document(s) SARS-CoV-2 (COVID-19) N gene [Presence] in Respiratory specimen by V[facility] with probe detection NEGATIVE [facility] This lab was ordered by Dwaine Basurto and reported by [facility]. ID Date Data Source [id number] 03/11/2021 12:00:00 AM EDT [facility] Name Value Range Interpretation Code Description Data Opal rce(s) Supporting Document(s) Carestart Rapid COVID Antigen Test Negative [facility] This lab was reported by Dwaine Joaquín valencia. Procedure Social History Code Duration Value Status Description Data Source(s ) Smoking 09/15/2021 12:00:00 AM EST Never Smoker completed Never S moker eCW1 ([facility]) Smoking 09/15/2021 12:00:00 AM EST Never Smoker completed Never S moker eCW1 ([facility]) Smoking 08/03/2021 12:00:00 AM EDT Never Smoker completed Never S moker eCW1 ([facility]) Smoking 08/03/2021 12:00:00 AM EDT Never Smoker completed Never S moker eCW1 ([facility]) Smoking 07/14/2021 12:00:00 AM EDT Never Smoker completed Never S moker eCW1 ([facility]) Smoking 07/04/2021 12:00:00 AM EDT Never Smoker completed Never S moker eCW1 ([facility]) Smoking 06/08/2021 12:00:00 AM EDT Never Smoker completed Never S moker eCW1 ([facility]) Smoking 06/08/2021 12:00:00 AM EDT Never Smoker completed Never S moker eCW1 ([facility]) Smoking 04/22/2021 12:00:00 AM EDT Never Smoker completed Never S moker eCW1 ([facility]) Smoking 04/22/2021 12:00:00 AM EDT Never Smoker completed Never S moker eCW1 ([facility]) Smoking 04/22/2021 12:00:00 AM EDT Never Smoker completed Never S moker eCW1 ([facility]) Smoking 04/05/2021 12:00:00 AM EDT Never Smoker completed Never S moker eCW1 ([facility]) Smoking 04/05/2021 12:00:00 AM EDT Never Smoker completed Never S moker eCW1 ([facility]) Smoking 03/07/2021 12:00:00 AM EDT Never Smoker completed Never S moker eCW1 ([facility]) Smoking 02/07/2021 12:00:00 AM EDT Never Smoker completed Never S moker eCW1 ([facility]) Smoking 02/07/2021 12:00:00 AM EDT Never Smoker completed Never S samsonker eCW1 ([facility]) Vital Signs ID Date Data Source UNK Name Value Range Interpretation Code Description Data Source(s) Body weight 141.4 [lb_av] 141.4 [lb_av] eCW1 ([facility]) Body height 64 [in_i] 64 [in_i] eCW1 ([facility]) Body mass index (BMI) [Ratio] 24.271 kg/m2 24.2 71 kg/m2 eCW1 ([facility]) Systolic blood pressure 114 mm[Hg] 114 mm[Hg] e CW1 ([facility]) Diastolic blood pressure 64 mm[Hg] 64 mm[Hg] eCW1 ([facility]) Body weight 142.0 [lb_av] 142.0 [lb_av] eCW1 ([facility]) Body weight 64.41 kg 64.41 kg eCW1 ([facility]) Body height 64 [in_i] 64 [in_i] eCW1 ([facility]) Body mass index (BMI) [Ratio] 24.374 kg/m2 24.3 74 kg/m2 eCW1 ([facility]) Systolic blood pressure 116 mm[Hg] 116 mm[Hg] e CW1 ([facility]) Diastolic blood pressure 80 mm[Hg] 80 mm[Hg] eCW1 ([facility]) Body weight 137.2 [lb_av] 137.2 [lb_av] eCW1 ([facility]) Body height 64 [in_i] 64 [in_i] eCW1 ([facility]) Body mass index (BMI) [Ratio] 23.55 kg/m2 23.55 kg/m2 eCW1 ([facility]) Systolic blood pressure 118 mm[Hg] 118 mm[Hg] e CW1 ([facility]) Diastolic blood pressure 72 mm[Hg] 72 mm[Hg] eCW1 ([facility]) Body weight 134 [lb_av] 134 [lb_av] eCW1 (On license of [facility]) Body height 64 [in_i] 64 [in_i] eCW1 ([facility]) Body mass index (BMI) [Ratio] 23.001 kg/m2 23.0 01 kg/m2 eCW1 ([facility]) Systolic blood pressure 112 mm[Hg] 112 mm[Hg] e CW1 ([facility]) Diastolic blood pressure 68 mm[Hg] 68 mm[Hg] eCW1 ([facility]) Systolic blood pressure 116 mm[Hg] 116 mm[Hg] M EDENT ([facility] [place], [facility]) Body height 64 [in_i] 64 [in_i] MEDENT ([facility] [place], [facility]) 5'4" Body mass index (BMI) [Ratio] 22.8 kg/m2 22.8 k g/m2 MEDENT ([facility] [place], [facility]) Diastolic blood pressure 76 mm[Hg] 76 mm[Hg] MEDENT ([facility] [place], [facility]) Heart rate 102 /min 102 /min MEDENT ([facility] [place], [facility]) Respiratory rate 12 /min 12 /min [facility] ( [facility] [place], [facility]) Oxygen saturation in Arterial blood by Pulse oximetry 99 % 99 % MEDENT ([facility], [facility]) Body temperature 98.3 [degF] 98.3 [degF] MEDENT ([facility], [facility]) Body weight 133.00 [lb_av] 133.00 [lb_av] MEDEN T ([facility], [facility]) Body weight 129 [lb_av] 129 [lb_av] eCW1 (On license of [facility]) Body height 64 [in_i] 64 [in_i] eCW1 ([facility]) Body mass index (BMI) [Ratio] 22.143 kg/m2 22.1 43 kg/m2 eCW1 ([facility]) Systolic blood pressure 130 mm[Hg] 130 mm[Hg] e CW1 ([facility]) Diastolic blood pressure 72 mm[Hg] 72 mm[Hg] eCW1 ([facility]) Systolic blood pressure 124 mm[Hg] 124 mm[Hg] e CW1 ([facility]) Diastolic blood pressure 72 mm[Hg] 72 mm[Hg] eCW1 ([facility]) Body weight 125.8 [lb_av] 125.8 [lb_av] eCW1 ([facility]) Body weight 57.06 kg 57.06 kg eCW1 ([facility]) Body height 64 [in_i] 64 [in_i] eCW1 ([facility]) Body mass index (BMI) [Ratio] 21.594 kg/m2 21.5 94 kg/m2 eCW1 ([facility]) Body weight 119 [lb_av] 119 [lb_av] eCW1 (On license of [facility]) Body height 64 [in_i] 64 [in_i] eCW1 ([facility]) Body mass index (BMI) [Ratio] 20.426 kg/m2 20.4 26 kg/m2 eCW1 ([facility]) Systolic blood pressure 160 mm[Hg] 160 mm[Hg] e CW1 ([facility]) Diastolic blood pressure 88 mm[Hg] 88 mm[Hg] eCW1 ([facility]) Body weight 121.0 [lb_av] 121.0 [lb_av] eCW1 ([facility]) Body weight 54.88 kg 54.88 kg eCW1 ([facility]) Body height 64 [in_i] 64 [in_i] eCW1 ([facility]) Body mass index (BMI) [Ratio] 20.77 kg/m2 20.77 kg/m2 eCW1 ([facility]) Systolic blood pressure 124 mm[Hg] 124 mm[Hg] e CW1 ([facility]) Diastolic blood pressure 76 mm[Hg] 76 mm[Hg] eCW1 ([facility]) Body weight 120.8 [lb_av] 120.8 [lb_av] eCW1 ([facility]) Body height 64 [in_i] 64 [in_i] eCW1 ([facility]) Body mass index (BMI) [Ratio] 20.735 kg/m2 20.7 35 kg/m2 eCW1 ([facility]) Systolic blood pressure 120 mm[Hg] 120 mm[Hg] e CW1 ([facility]) Diastolic blood pressure 74 mm[Hg] 74 mm[Hg] eCW1 ([facility]) Patient Treatment Plan of Care Planned Activity Planned Date Details Description Data Source (s) NITROFURANTOIN, MACROCRYSTALS 25 MG / Ni trofurantoin, Monohydrate 75 MG Oral Capsule [Macrobid] 06/13/2021 12:00:00 AM EDT eC W1 ([facility]) NITROFURANTOIN, MACROCRYSTALS 25 MG / Ni trofurantoin, Monohydrate 75 MG Oral Capsule [Macrobid] 06/13/2021 12:00:00 AM EDT eC W1 ([facility]) Cephalexin 500 MG Oral Capsule 05/05/2021 12:00:00 AM EDT eCW1 ([facility]) NITROFURANTOIN, MACROCRYSTALS 25 MG / Ni trofurantoin, Monohydrate 75 MG Oral Capsule [Macrobid] 03/07/2021 12:00:00 AM EDT eC W1 ([facility]) NITROFURANTOIN, MACROCRYSTALS 100 MG Oral Capsule 02/28/2021 12: 00:00 AM EDT eCW1 ([facility])
--- OUTSIDE RECORDS SUMMARY | 2021-09-23 15:00 | CCD ---
Author Author [facility] Organization [facility] Address Unknown Phone Unavailable Care Team Providers Care Tip Finisher Name Role Phone Linda Hallman Unavailable PROBLEMS Type Condition ICD9-CM Code [id number] Code Onset Dates Condition S tatus W/U Status Risk SNOMED Code Notes Problem Supervision of other normal Z34.80 Ac tive confirm [id number] ALLERGIES Allergen (clinical drug ingredient) Drug/Non Drug Allergy do cumented on EMR Reaction Allergy Type Onset Date Status amoxicillin / clavulanate Augmentin([facility] Code:[address]-60) Unkn own Drug Allergy Active ENCOUNTERS from 1998 to 2021-07-25 Encounter Location Date Provider Diagnosis [facility] [address] [place] [address] [place] [address] Jun, Linda Hallman 28 weeks gestation o f Z3A.28 and Urinary tract infection affecting care of mother, antepartum O23.40 IMMUNIZATIONS Vaccine Route Administration Date Status TDAP [...] Notes Start Da te End Date Status Nitrofurantoin Macrocrystal 100 MG 1 capsule at bedtim e with food or milk Orally bid for 7 days Feb, Not-Taking Cephalexin 500 MG 1 capsule Orally every 8 hours for 7 days May, Not-Taking Macrobid 100 MG capsule Orally BID for 7 days March, Not-Taking 27-1 MG 1 tablet Orally Once a day Active Macrobid 100 MG 1 capsule at bedtime with food Orally BID for 7 days Jun, Not-Taking PROCEDURES No Information RESULTS Component Value Reference Range URINE CULTURE Reviewed date:07/06/2021 07:45:43 Interpretation: Performing Lab:[facility], [facility] [address] [facility] [id number] , ,[place] [address] REASON FOR VISIT 3WK PN MEDICAL (GENERAL) HISTORY Type Description Date Surgical History Bilateral tympanostomy 01/31/2000 Hospitalization History surgery Goals Section No Information Health Concerns No Information MEDICAL EQUIPMENT No Information MENTAL STATUS No Information FUNCTIONAL STATUS No Information ASSESSMENTS Encounter Date Diagnosis Assessment Notes Treatment Notes Treatm ent Clinical Notes Jun, 28 weeks gestation of (ICD-10 - Z3A.28 ) Jun, Urinary tract infection affe cting care of mother, antepartum (ICD- 10 - O23.40) PLAN OF TREATMENT Next Appt Details 2-4 weeks Reason:PN Provider Name:Dmitriy Harvey, 2021-08-03 08:00:00 AM, [address] [place] [id number], [place], [address], Provider Name:Linda Hallman, 2021-08-17 08:40:00 AM, [address] [place] [address] , [place], [address], Provider Name:Linda Hallman, 2021-08-24 08:40:00 AM, [address] [place] [address] , [place], [address], Follow Up:2-4 weeksPN Insurance Providers Payer Name Payer Address Payer Phone Insured Name Patient Relati onship to Insured Coverage Start Date Coverage End Date [facility] [address] [facility] [id number] [place] F
--- OUTSIDE RECORDS SUMMARY | 2021-09-23 15:00 | CCD | Continuity of Care Document ---
Author Author Mariah DUVAL [place] Organization Unknown Address [address] [place] [address] [place] [address] Phone [phone] Care Team Providers Care Meter Supervisor Name Role Phone [facility] [phone] Problems Description No Information Available Social History Type Date Description Comments Sex Unknown ETOH Use Occasionally consumes alcohol Tobacco Use Start: Unknown Patient has never smoked Tobacco Use Start: Unknown The Patient Has Never Vaped Smoking Status Reviewed: 07/10/21 The Patient Has Never Vaped Allergies, Adverse Reactions, Alerts Active Allergies Criticality Reaction | Severity Comments Date Amoxicillin Unable to assess criticality 10/24/2019 Penicillin Unable to assess criticality 10/24/2019 Augmentin Unable to assess criticality 10/24/2019 Medications Active Medications SIG Qnty Indications Ordering Provide r Date Prenatabs Fa Unknown Immunizations Description No Information Available Vital Signs Date Vital Result Comment 07/10/2021 4:03pm BP Systolic 116 mmHg BP Diastolic 76 mmHg Heart Rate 102 /min Respiratory Rate 12 /min O2 % BldC Oximetry 99 % Body Temperature 98.3 F Weight 133.00 lb Height 64 inches 5'4" BMI (Body Mass Index) 22.8 kg/m2 Pain Level 0 10/24/2019 6:13pm BP Systolic 159 mmHg BP Diastolic 91 mmHg Heart Rate 108 /min Respiratory Rate 16 /min O2 % BldC Oximetry 99 % Body Temperature 98.7 F Weight 117.00 lb Height 64 inches 5'4" BMI (Body Mass Index) 20.1 kg/m2 Pain Level 9 Results Description No Information Available Procedures Date Code Description Status 07/10/2021 90178 Office/Outpatient Established Lo w MDM 20-29 Min Completed Medical Devices Description No Information Available Encounters Type Date Location Provider Dx Diagnosis Office Visit 07/10/2021 3:50p Main Office ILIANA Salazar J06 .9 Acute upper respiratory infection, unspecified Z20.828 Contact w and exposure to ot h viral communicable diseases Assessments Date Code Description Provider 07/10/2021 J06.9 Acute upper respiratory infectio n, unspecified ILIANA Salazar 07/10/2021 Z20.828 Contact with and (benson spected) exposure to other viral communicable diseases ILIANA Salazar Plan of Treatment No Information Available Functional Status Description No Information Available Mental Status Description No Information Available Referrals Description No Information Available
--- OUTSIDE RECORDS SUMMARY | 2021-09-23 15:00 | CCD ---
Author Author [facility] Organization [facility] Address Unknown Phone Unavailable Care Team Providers Care Plsql Developer Name Role Phone Dmitriy Harvey Unavailable PROBLEMS Type Condition ICD9-CM Code [id number] Code Onset Dates Condition S tatus W/U Status Risk SNOMED Code Notes Problem Supervision of other normal Z34.80 Ac tive confirm [id number] ALLERGIES Allergen (clinical drug ingredient) Drug/Non Drug Allergy do cumented on EMR Reaction Allergy Type Onset Date Status amoxicillin / clavulanate Augmentin([facility] Code:[address]-71) Unkn own Drug Allergy Active ENCOUNTERS from 1998 to 2021-09-21 Encounter Location Date Provider Diagnosis [facility] [address] [place] [address] [place] [address] Sep, Dmitriy Harvey Encounter for superv ision of normal first , third trimester Z34.03 and 39 weeks gestation of Z3A.39 IMMUNIZATIONS Vaccine Route Administration Date Status TDAP [...] FOR REFERRAL No Information VITAL SIGNS Weight 141.4 lbs Sep, Height 64 in Sep, BMI 24.271 kg/m2 Sep, Blood pressure systolic 114 mm Hg 11 Nov, 2021 Blood pressure diastolic 64 mm Hg Sep, MEDICATIONS Medication SIG (Take, [...] Sep, Encounter for supervision of normal first , third trimester (ICD-10 - Z34.03) Sep, 39 weeks gestation of (ICD-10 - Z3A.39 ) PLAN OF TREATMENT Next Appt Details Provider Name:Ras Vaughan, 09:00:00 AM, [address] [facility], , [place], [address], Insurance Providers Payer Name Payer Address Payer Phone Insured Name Patient Relati onship to Insured Coverage Start Date Coverage End Date [facility] [address] [facility] [id number] [place]
--- OUTSIDE RECORDS SUMMARY | 2021-09-23 15:00 | CCD ---
Author Author [facility] Organization [facility] Address Unknown Phone Unavailable Care Team Providers Care Associate Financial Analyst Name Role Phone Alexus Ras Unavailable PROBLEMS Type Condition ICD9-CM Code [id number] Code Onset Dates Condition S tatus W/U Status Risk SNOMED Code Notes Problem Supervision of other normal Z34.80 Ac tive confirm [id number] ALLERGIES Allergen (clinical drug ingredient) Drug/Non Drug Allergy do cumented on EMR Reaction Allergy Type Onset Date Status amoxicillin / clavulanate Augmentin([facility] Code:[address]-06) Unkn own Drug Allergy Active ENCOUNTERS from 1998 to 2021-06-26 Encounter Location Date Provider Diagnosis [facility] [address] [place] [address] [place] [address] Jun, Ras Vaughan Encounter for superv ision of normal first in second trimester Z34.02 and 25 weeks gestation of Z3A.25 IMMUNIZATIONS No Information SOCIAL HISTORY Tobacco Use: Social History Observation Description Date Details (start date - stop date) Never Smoker Sex Assigned At : Social History Observation Description Sex Assigned At Unknown Domestic Violence: Question Answer Notes Status: No history of abuse Tobacco Use: Question Answer Notes Are you a: never smoker REASON FOR REFERRAL No Information VITAL SIGNS Weight 129 lbs Jun, Height 64 in Jun, BMI 22.143 kg/m2 Jun, Blood pressure systolic 130 mm Hg Jun, Blood pressure diastolic 72 mm Hg Jun, MEDICATIONS Medication SIG (Take, Route, Frequency, Duration) Notes Start Da te End Date Status Macrobid 100 MG capsule Orally BID for 7 days March, Not-Taking 27-1 MG 1 tablet Orally Once a day Active Nitrofurantoin Macrocrystal 100 MG 1 capsule at bedtim e with food or milk Orally bid for 7 days Feb, Not-Taking Macrobid 100 MG 1 capsule at bedtime with food Orally BID for 7 days Jun, Active Cephalexin 500 MG 1 capsule Orally every 8 hours for 7 days May, Active PROCEDURES No Information RESULTS Component Value Reference Range URINE CULTURE Reviewed date:06/13/2021 13:15:15 Interpretation: Performing Lab:[facility], [facility] [address] [facility] [address] , ,[place] [address] REASON FOR VISIT 4 wk pn MEDICAL (GENERAL) HISTORY Type Description Date Surgical History Bilateral tympanostomy 01/31/2000 Hospitalization History surgery Goals Section No Information Health Concerns No Information MEDICAL EQUIPMENT No Information MENTAL STATUS No Information FUNCTIONAL STATUS No Information ASSESSMENTS Encounter Date Diagnosis Assessment Notes Treatment Notes Treatm ent Clinical Notes Jun, Encounter for supervision of normal first in second trimester (ICD-10 - Z34.02) Jun, 25 weeks gestation of (ICD-10 - Z3A.25 ) PLAN OF TREATMENT Medication Medication Name Sig Start Date Stop Date Macrobid 100 MG 1 capsule at bedtime with food Orally BI D for 7 days Jun, Treatment Notes Test Name Order Date CBC - Complete Blood Count 2021-06-09 Type and Screen (D Rh Antibody Screen) 2021-06-09 Glucose Challenge Test 1 Hour 2021-06-09 Next Appt Details 3 Weeks Reason:- Routine follow up Provider Name:Dmitriy Harvey, 2021-07-04 10:30:00 AM, [address] [facility], , [place], [address], Follow Up:3 Weeks- Routine follow up Insurance Providers Payer Name Payer Address Payer Phone Insured Name Patient Relati onship to Insured Coverage Start Date Coverage End Date [facility] [address] [facility] [id number] [place]
--- OUTSIDE RECORDS SUMMARY | 2021-09-23 15:00 | CCD | Continuity of Care Document ---
Author Author Mariah DUVAL [place] Organization Unknown Address [address] [place] [address] [place] [address] Phone [phone] Care Team Providers Care Tile Presser Name Role Phone [facility] [phone] Problems Description No Information Available Social History [...] Available Procedures Date Code Description Status 07/10/2021 88358 Office/Outpatient Established Lo w MDM 20-29 Min [...]
--- OUTSIDE RECORDS SUMMARY | 2021-09-23 15:00 | CCD ---
Author Author [facility] Organization [facility] Address Unknown Phone Unavailable Care Team Providers Care Therapist Physical Name Role Phone Whitbenjamin Mae Unavailable PROBLEMS Type Condition ICD9-CM Code [id number] Code Onset Dates Condition S tatus W/U Status Risk SNOMED Code Notes Problem Supervision of other normal Z34.80 Ac tive confirm [id number] ALLERGIES Allergen (clinical drug ingredient) Drug/Non Drug Allergy do cumented on EMR Reaction Allergy Type Onset Date Status amoxicillin / clavulanate Augmentin([facility] Code:[address]-30) Unkn own Drug Allergy Active ENCOUNTERS from 1998 to 2021-08-10 Encounter Location Date Provider Diagnosis [facility] [address] [place] [address] [place] [address] Jul, Mae Caro Encounter for superv ision of normal first , third trimester Z34.03 ; 30 weeks gestation of Z3A.30 and Encounter for immunization Z23 IMMUNIZATIONS Vaccine Route Administration Date Status TDAP [...] FOR REFERRAL No Information VITAL SIGNS Weight 134 lbs Jul, Height 64 in 14 Sep, 2021 BMI 23.001 kg/m2 Jul, Blood pressure systolic 112 mm Hg Jul, Blood pressure diastolic 68 mm Hg Jul, MEDICATIONS Medication SIG (Take, [...] bid for 7 days Feb, Not-Taking PROCEDURES from 1998 to 2021-08-10 Procedure Date Ordered Result Body Site Imm: Boostrix 0.5mL IM TDAP 2021-07-19 N/A RESULTS No Results REASON FOR VISIT 2WK PN MEDICAL (GENERAL) HISTORY Type Description Date Surgical History Bilateral tympanostomy 01/31/2000 Hospitalization History surgery Goals Section No Information Health Concerns No Information MEDICAL EQUIPMENT No Information MENTAL STATUS No Information FUNCTIONAL STATUS No Information ASSESSMENTS Encounter Date Diagnosis Assessment Notes Treatment Notes Treatm ent Clinical Notes Jul, Encounter for supervision of normal first , third trimester (ICD-10 - Z34.03) Jul, 30 weeks gestation of (ICD-10 - Z3A.30 ) Jul, Encounter for immunization (ICD-10 - Z23) PLAN OF TREATMENT Next Appt Details 2 Weeks Reason:routine Provider Name:Linda Hallman, 2021-08-17 08:40:00 AM, [address] [place] [address] , [place], [address], Provider Name:Linda Hallman, 2021-08-24 08:40:00 AM, [address] [place] [address] , [place], [address], Provider Name:Linda Hallman, 2021-09-01 08:40:00 AM, [address] [place] [address] , [place], [address], Provider Name:Dmitriy aHrvey, 2021-09-08 08:15:00 AM, [address] [facility], , [place], [address], Provider Name:Dmitriy Harvey, 2021-09-15 08:15:00 AM, [address] [facility], , [place], [address], Provider Name:Ras Vaughan, 09:00:00 AM, [address] [facility], , [place], [address], Follow Up:2 Weeksroutine Insurance Providers Payer Name Payer Address Payer Phone Insured Name Patient Relati onship to Insured Coverage Start Date Coverage End Date [facility] [address] [facility] [id number] [place]
[2021-09-23] MEDS ORDERED: PRENTAB9 PO (15:10)
[2021-09-23] MEDS ORDERED: HOME MED LIST COMPLETE! XX SCH (15:15)
[2021-09-23 17:04] LABS: HEMATOCRIT 34.4 % (36.0-47.0); HEMOGLOBIN 11.2 g/dl (12.0-15.5); MEAN CORPUSCULAR HEMOGLOBIN 27.9 pg (27.0-33.0); MEAN CORPUSCULAR HGB CONC 32.6 g/dl (32.0-36.5); MEAN CORPUSCULAR VOLUME 85.6 fl (80.0-96.0); PLATELET COUNT, AUTOMATED 256 10^3/uL (150-450); RED BLOOD COUNT 4.02 10^6/uL (4.00-5.40); WHITE BLOOD COUNT 8.5 10^3/uL (4.0-10.0)
[2021-09-23] MEDS ORDERED: OXYTOCIN DRIP 30 UNITS in IV 1 EA IV SCH (17:05)
[2021-09-23] MEDS ORDERED: LACTATED RINGER'S 1000 ML IV STA (17:05)
[2021-09-23] MEDS ORDERED: OXYTOCIN DRIP 30 UNITS in IV 1 EA IV PRN (17:05)
[2021-09-23] MEDS ORDERED: LIDOCAINE 1% MDV 20ML VIAL INFIL PRN (17:05)
--- NOTE | 2021-09-23 17:25 | HPEPDOC ---
Obstetrical History & Physical General Date of Admission Sep 23, 2021 at 14:55 History of Present Illness Chief Complaint: Induction of labor Information Provided By: Patient : 1 Term: 0 Pre-term: 0 Abortions: 0 Livin Care Care: Good Care Dating Final EDC by: LMP, 1st trimester (US) EGA at Admission: 40 (+2) Antepartum Course Pre- weight (lbs.): 120.8 Admission Weight (lbs.): 142 Past Medical History Past Obstetrical History : Past Obstetrical History: Primgravida Past Medical History Surgical History: Other (tympanostomy) Family History Significant Family History: Cancer Social History Marital Status: Single Family situation: Spouse/partner home Psychosocial History: No pertinent psych hx * Smoker: non-smoker Alcohol: Denies Drugs: denies Abuse Violence Screening Have you been hit/kicked/slapp: No Have you been sexually assault: No Imunizations Tdap status: current Allergies Coded Allergies: amoxicillin (Verified Allergy, Unknown, hives, 09/23/21) clavulanic acid (Verified Allergy, Unknown, hives, 09/23/21) Medications Scheduled No.137/Iron/Folic Acd ( Vitamin Tablet) 1 Each Tablet, 1 TAB PO DAILY Physical Examination Physical Examination GENERAL: Alert and oriented times three. BREAST: . ABDOMEN: Gravid and non-tender to touch. FETUS: Is vertex (VTX) by sterile vaginal examination (SVE), fetus is vertex (VTX) by Quintin. EFW 7# HEART RATE: Regular rate and rhythm. LUNGS: Clear to auscultation (CTA). EXTREMITIES: No edema. No clonus. Deep tendon reflexes (DTRs) + 2. Vital Signs/I&O Vital Signs Date Time Temp Pulse Resp B/P (MAP) Pulse Ox O2 Delivery O2 Flow Rate FiO2 09/23/21 15:36 99.3 102 18 139/89 (106) Laboratory Data 24H LABS Laboratory Tests 2 09/23/21 15:10: Serology Scanned Report Hepatitis B Testing 09/23/21 16:25: 09/23/21 16:46: Nucleated Red Blood Cells % (auto) 0.0 CBC/BMP Laboratory Tests 09/23/21 16:46 Pertinent Laboratoy Data Blood Type: O+ RBC Antibody Screen: Negative HIV: Negative Hepatitis B: Negative Hepatitis C: Negative Rapid Plasma Reagin: Nonreactive Rubella: Immune Chlamydia/Gonorrhea: Negative Group B Streptococcus: Negative Glucose Tolerance Test: 102 Anatomy Ultrasound Ultrasound Date: Apr 27, 2021 Placenta Location: Posterior Normal Anatomy: Yes Placenta Previa: No Estimated Weight (grams): 260 (45%) Other Ultrasounds 02/07/21 dating 7w4d 08/24/21 cephalic Steroid Therapy Steroid Therapy: No Vaginal Examination Dilation: 2cm (+) Effacement: 80% Station: -1 Cervical Consistency: Medium Cervical Position: Posterior Presentation: Cephalic presentation Assessment Heart Rate (FHR): 135 Variability: Moderate Accelerations: Positive Tocometer Contractions: Yes Frequency: irregular, every 2-5 min. Strength: palpated as mild Assessment/Plan Assessment Mariah is a 21-year-old (G)1 para (P)0-0-0-0 at 40+2 weeks by first trimester ultrasound. Presents to Labor and Delivery (L&D) induction of labor. has been complicated by sporadic white coat HTN that resolves with re st. Reports good movement. Denies LOF, bleeding or perception of the current UC's. Plan Admit and orient. Polarity Tester and consent. Diet: clear. Group B Streptococcus (GBS) negative. Labs and intravenous (IV) per unit protocol. Counseled on Pitocin and induction of labor (IOL). Lactated Ringers (LR): Bolus 500 mL, then at 125 mL/hr. Plans epidural Anticipate normal spontaneous delivery () C-S as appropriate. Catrachita Cruz CNM Sep 23, 2021 17:25
[2021-09-23] MEDS: LR 1,000 ML IV SCH (17:53)
[2021-09-24] VITALS (38 sets, daily range): BP systolic 96–169; BP diastolic 54–147
[2021-09-24] MEDS ORDERED: FENTANYL 2MCG/ML ROPIVACAINE 0.2% IN 0.9% NACL 100ML IVBAG As Ordered ONE (03:22)
[2021-09-24] MEDS ORDERED: LACTATED RINGER'S 1000 ML IV PRN (04:50)
[2021-09-24] MEDS ORDERED: EPIDURAL COMMENT XX SCH (04:50)
[2021-09-24] MEDS ORDERED: diphenhydrAMINE 50MG/ML VIAL (J1200) IV PRN (04:50)
[2021-09-24] MEDS ORDERED: NALOXONE INJ 0.4MG/1ML VIAL (J2310 PER 1MG) IV PRN (04:50)
[2021-09-24] MEDS ORDERED: REFRIGERATOR IV KEYS XX PRN (04:50)
[2021-09-24] MEDS ORDERED: EPIDURAL/PCA KEYS XX PRN (04:50)
[2021-09-24] MEDS ORDERED: ONDANSETRON 4MG/2ML VIAL IV PRN (04:50)
[2021-09-24] MEDS ORDERED: FENTANYL/ROPIVACAINE/NACL BAG 100 ML EPIDURAL SCH (04:50)
[2021-09-24] MEDS ORDERED: ePHEDrine SULFATE 25 MG/5 ML(5MG/ML) SYRINGE IV PRN (04:50)
[2021-09-24] MEDS: LR 1,000 ML IV SCH (04:52)
[2021-09-24 07:37] LABS: CORD GAS ABE V -6.6; CORD GAS HCO3 V 20.5 MEQ/L; CORD GAS O2 SAT V 78.1 %; CORD GAS PCO2 V 46.6 mmHg; CORD GAS PH V 7.262 UNITS; CORD GAS PO2 V 36.7 mmHg; CORD GAS SBC V 18.7 MEQ/L
[2021-09-24 07:40] LABS: CORD GAS ABE A -7.1; CORD GAS HCO3 A 19.7 MEQ/L; CORD GAS O2 SAT A 93.9 %; CORD GAS PCO2 A 44.2 mmHg; CORD GAS PH A 7.268 UNITS; CORD GAS PO2 A 59.6 mmHg; CORD GAS SBC A 18.8 MEQ/L; CORD GAS TCO2 A 21.1 MEQ/L
[2021-09-24] MEDS ORDERED: ACETAMINOPHEN 500 MG TAB PO PRN (08:05)
[2021-09-24] MEDS ORDERED: RHOGAM 300 MCG (1500 IU) INJ (J2790) IM SCH (08:05)
[2021-09-24] MEDS ORDERED: ACETAMINOPHEN TAB 650MG DOSE (2X325MG) PO PRN (08:05)
[2021-09-24] MEDS ORDERED: MOM 30ML SUSPENSION UDC PO PRN (08:05)
[2021-09-24] MEDS ORDERED: MEASLES,MUMPS,RUBELLA VACCINE INJ (MMR-II) (90707) SC SCH (08:05)
[2021-09-24] MEDS ORDERED: DOCUSATE SODIUM 100MG CAPSULE PO PRN (08:05)
[2021-09-24] MEDS ORDERED: IBUPROFEN 800 MG TAB PO PRN (08:05)
[2021-09-24] MEDS ORDERED: DIBUCAINE 1% OINTMENT 30GM TOP PRN (08:05)
[2021-09-24] MEDS ORDERED: METHYLERGONOVINE MALEATE 0.2 MG TAB PO PRN (08:05)
[2021-09-24] MEDS ORDERED: IBUPROFEN 600MG TAB PO PRN (08:05)
--- NOTE | 2021-09-24 08:17 | DNPDOC ---
[facility] Delivery Note Delivery Note DATE OF DELIVERY: 09/24/2021 PREDELIVERY DIAGNOSIS: 40w2/7 weeks' gestation and labor. POST DELIVERY DIAGNOSIS: Delivered. PROCEDURE: Spontaneous vaginal delivery PROVIDER: Catrachita Cruz CNM ANESTHESIA: Epidural ESTIMATED BLOOD LOSS: 150 mL. FINDINGS: 7 pound 15 ounce , 3590gm female infant, Score 9/9, no nuchal cord. DELIVERY SUMMARY: Patient is a 21-year-old 1 now para 1-0-0-1 who was admitted to labor and delivery for induction at term. She received pitocin IV and labor did ensue. She utilized an epidural for labor coping. Spontaneous rupture of membranes, clear fluid 0358. Midline episiotomy cut for Cat III tracing. Viable female delivered GILDARDO, restituted to ROP @ 0725. Shoulders delivered with ease. Spontaneous respirations, transitioned on maternal abdomen. Cord gases obtained, arterial 7.268 BE-7.1, venous 7.262, BE -6.6. Cord doubly clamped and cut by FOB under my direction after pulsations ceased. Apgars 9/9. Placenta sharpe, intact with 3v cord @ 0736. Succenturiate lobe noted. Fundus firmed with massage and premixed IV pitocin bolus. EBL 150ml. Midline episiotomy repaired with 3-0 vicryl rapide in the usual fashion. Bilateral labial lacerations noted, right side reapproximated with 3 interrupted stitches of same suture. Sponge, sharp and instrument count correct. Catrachita Cruz CNM Sep 24, 2021 08:13
[2021-09-24] MEDS: PRENATAL VITAMINS CHEWABLE TABLET PO SCH (09:00)
[2021-09-25 06:00] VITALS: BP 129/70
--- NOTE | 2021-09-25 08:08 | IPNPDOC ---
Progress Note Date of Service: Sep 25, 2021 Day#: 1 Progress Note SUBJECT: Patient is a 21-year-old status post uncomplicated spontaneous v aginal delivery at 40-3/7 weeks' doing well day #1. She has been ambulating, voiding spontaneously without issue and tolerating regular diet. Breast feeding without issue. Reports lochia is like a normal period. Patient is ambulating well. Reports some cramping, well controlled with medication. Voiding and ambulating without difficulty. OBJECTIVE: VITAL SIGNS: Within normal limits, afebrile. Alert and oriented times three. Breath sounds clear to auscultation. Heart rate: Regular rate and rhythm, no murmurs, rubs or gallops. Abdomen: Fundus firm at U-2. Soft, NTTP. Minimal to moderate lochia. ASSESSMENT: Patient is a 21-year-old G 1 P 1 status post uncomplicated spontaneous vaginal delivery after presenting to labor and delivery with contractions. Doing well on day 1. Vitals within normal limits, afebrile, hemodynamically stable with no evidence of infection. PLAN: 1. Potential discharge to home today. 2. Tylenol and Motrin for pain. 3. Encourage breast feeding and ambulation. 4. Patient desires Micronor for contraception 5. Routine PP visit in 6 weeks in clinic. 6. Discussed return precautions at length. VS, I&O, 24H, Fishbone Vital Signs/I&O Vital Signs Date Time Temp Pulse Resp B/P (MAP) Pulse Ox O2 Delivery O2 Flow Rate FiO2 09/25/21 06:00 97.5 75 14 129/70 (89) 97 Room Air I&O- Last 24 Hours up to 6 AM 09/25/21 05:59 Intake Total 3023 ml Output Total 2250 ml Balance 773 ml ANNAMARIA DODGE MD Sep 25, 2021 08:08
[2021-09-25] MEDS: PRENATAL VITAMINS CHEWABLE TABLET PO SCH (09:19)
[2021-09-25 18:01] VITALS: BP 120/83
[2021-09-26 06:00] VITALS: BP 117/66
[2021-09-26] MEDS: PRENATAL VITAMINS CHEWABLE TABLET PO SCH (09:03)
[2021-09-26] MEDS ORDERED: ACET-683 PO (09:48)
[2021-09-26] MEDS ORDERED: IBUP80TA PO (09:48)
== END 2021-09-26 13:09 | disposition home or self-care (01) | DRG 560 ==
LOC: M LDI 14:55 → M OBS 09-24 10:00
PROVIDERS: ADMIT Advanced Practice Midwife; ATTEND Advanced Practice Midwife
PROC: 3E033VJ Introduction of Other Hormone into Peripheral Vein, Percutaneous Approach (ICD-10-PCS; 2021-09-23)
PROC: 0HQ9XZZ Repair Perineum Skin, External Approach (ICD-10-PCS; 2021-09-23)
PROC: 0W8NXZZ Division of Female Perineum, External Approach (ICD-10-PCS; principal; 2021-09-24)
PROC: 10E0XZZ Delivery of Products of Conception, External Approach (ICD-10-PCS; 2021-09-24)
DX: O48.0 Post-term pregnancy (principal); O43.199 Other malformation of placenta, unspecified trimester; Z37.0 Single live birth; Z3A.40 40 weeks gestation of pregnancy; O70.0 First degree perineal laceration during delivery; O13.4 Gestational [pregnancy-induced] hypertension without significant proteinuria, complicating childbirth

== ENCOUNTER → 2022-12-18 | Outpatient (CLI) | payer BC, OTHER ==
[~2022-12-18] MED LIST: ACET-683 PO; IBUP80TA PO; PRENTAB9 PO
[2022-12-18 15:54] LABS: HEMATOCRIT 36.5 % (36.0-47.0); HEMOGLOBIN 11.7 g/dl (12.0-15.5); MEAN CORPUSCULAR HEMOGLOBIN 29.5 pg (27.0-33.0); MEAN CORPUSCULAR HGB CONC 32.1 g/dl (32.0-36.5); MEAN CORPUSCULAR VOLUME 91.9 fl (80.0-96.0); PLATELET COUNT, AUTOMATED 296 10^3/uL (150-450); RED BLOOD COUNT 3.97 10^6/uL (4.00-5.40); WHITE BLOOD COUNT 10.3 10^3/uL (4.0-10.0)
[2022-12-18 16:19] LABS: HIV 1&2 SCREEN CENTAUR NEGATIVE (NEGATIVE)
[2022-12-18 17:41] LABS: GC DNA AMPLIFICATION NEGATIVE (NEGATIVE)
== END ==
LOC: M PLALAB 12:52
PROVIDERS: ATTEND Advanced Practice Midwife
DX: Z34.91 Encounter for supervision of normal pregnancy, unspecified, first trimester (principal)

== ENCOUNTER → 2023-03-09 | Outpatient (CLI) | payer BC, OTHER | LOC: M WHC 10:10 | PROVIDERS: ATTEND Obstetrics & Gynecology | DX: Z34.92 Encounter for supervision of normal pregnancy, unspecified, second trimester (principal); Z3A.19 19 weeks gestation of pregnancy ==

== ENCOUNTER → 2023-04-20 | Outpatient (CLI) | payer BC, OTHER | LOC: M WHC 14:31 | PROVIDERS: ATTEND Advanced Practice Midwife | DX: Z34.82 Encounter for supervision of other normal pregnancy, second trimester (principal) ==

== ENCOUNTER → 2023-05-18 | Outpatient (CLI) | payer BC, OTHER ==
[2023-05-18 14:25] LABS: HEMATOCRIT 31.3 % (36.0-47.0); HEMOGLOBIN 10.1 g/dl (12.0-15.5); MEAN CORPUSCULAR HEMOGLOBIN 30.1 pg (27.0-33.0); MEAN CORPUSCULAR HGB CONC 32.3 g/dl (32.0-36.5); MEAN CORPUSCULAR VOLUME 93.2 fl (80.0-96.0); PLATELET COUNT, AUTOMATED 221 10^3/uL (150-450); RED BLOOD COUNT 3.36 10^6/uL (4.00-5.40); WHITE BLOOD COUNT 11.4 10^3/uL (4.0-10.0)
== END ==
LOC: M PLALAB 08:18
PROVIDERS: ATTEND Advanced Practice Midwife
DX: Z34.82 Encounter for supervision of other normal pregnancy, second trimester (principal)

== ENCOUNTER → 2023-07-06 | Outpatient (REF) | payer OTHER, BC | LOC: M SFHCWAGY 13:22 | PROVIDERS: ATTEND Specialist | DX: Z36.85 Encounter for antenatal screening for Streptococcus B (principal) ==

== ENCOUNTER 2023-07-30 08:21 | Inpatient (IN) | payer BC, OTHER ==
[~2023-07-30] VITALS: Ht 162.6 cm; Wt 67.2 kg
[2023-07-30] VITALS (27 sets, daily range): BP systolic 113–177; BP diastolic 64–92; O2SAT 98
[2023-07-30] MEDS ORDERED: LACTATED RINGER'S 1000 ML IV STA (08:38)
[2023-07-30] MEDS ORDERED: CARBOPROST TROMETHAMINE 250 MCG/ML AMP IM PRN (08:40)
[2023-07-30] MEDS ORDERED: OXYTOCIN DRIP 30 UNITS in IV 1 EA IV PRN (08:40)
[2023-07-30] MEDS ORDERED: LIDOCAINE 1% MDV 20ML VIAL INFIL PRN (08:40)
[2023-07-30] MEDS ORDERED: TRANEXAMIC ACID INJection 1,000 MG in NS 100 ML IV PRN (08:40)
[2023-07-30] MEDS ORDERED: OXYTOCIN INJ 10UNITS/ML 1ML VIAL IM PRN (08:40)
[2023-07-30] MEDS ORDERED: METHYLERGONOVINE MALEATE 0.2MG/ML 1ML VIAL IM PRN (08:40)
[2023-07-30] MEDS ORDERED: IRON65TA2 PO (09:28)
[2023-07-30] MEDS ORDERED: HOME MED LIST COMPLETE! XX SCH (09:30)
[2023-07-30 09:35] LABS: HEMATOCRIT 33.6 % (36.0-47.0); HEMOGLOBIN 11.5 g/dl (12.0-15.5); MEAN CORPUSCULAR HEMOGLOBIN 30.8 pg (27.0-33.0); MEAN CORPUSCULAR HGB CONC 34.2 g/dl (32.0-36.5); MEAN CORPUSCULAR VOLUME 90.1 fl (80.0-96.0); PLATELET COUNT, AUTOMATED 188 10^3/uL (150-450); RED BLOOD COUNT 3.73 10^6/uL (4.00-5.40); WHITE BLOOD COUNT 8.1 10^3/uL (4.0-10.0)
[2023-07-30] MEDS ORDERED: LR 1,000 ML IV SCH (09:35)
[2023-07-30] MEDS ORDERED: OXYTOCIN DRIP 30 UNITS in IV 1 EA IV SCH (09:35)
[2023-07-30] MEDS ORDERED: VANCOMYCIN HCL 1,000 MG, VIAL MATE ADAPTER 1 EACH in NS 250 ML IV SCH (10:00)
[2023-07-30] MEDS ORDERED: LR 500 ML IV PRN (11:35)
[2023-07-30] MEDS ORDERED: FENTANYL/ROPIVACAINE/NACL BAG 100 ML EPIDURAL SCH (11:35)
[2023-07-30] MEDS ORDERED: diphenhydrAMINE 50MG/ML VIAL IV PRN (11:35)
[2023-07-30] MEDS ORDERED: ONDANSETRON 4MG 2ML VIAL IV PRN (11:35)
[2023-07-30] MEDS ORDERED: EPIDURAL/PCA KEYS XX PRN (11:35)
[2023-07-30] MEDS ORDERED: ePHEDrine SULFATE 25 MG/5 ML(5MG/ML) SYRINGE IVP PRN (11:35)
[2023-07-30] MEDS ORDERED: NALOXONE INJ 0.4MG/1ML VIAL IV PRN (11:35)
[2023-07-30] MEDS ORDERED: DOCUSATE SODIUM 100MG CAPSULE PO PRN (17:45)
[2023-07-30] MEDS ORDERED: ANUSOL HC CREAM 30GM TOP PRN (17:45)
[2023-07-30] MEDS ORDERED: RHOGAM 300MCG (1500IU) INJ IM SCH (17:45)
[2023-07-30] MEDS ORDERED: IBUPROFEN 600MG TAB PO PRN (17:45)
[2023-07-30] MEDS ORDERED: DIBUCAINE 1% OINTMENT 30GM TOP PRN (17:45)
[2023-07-30] MEDS ORDERED: MOM 30ML SUSPENSION UDC PO PRN (17:45)
[2023-07-30] MEDS ORDERED: ACETAMINOPHEN 500 MG TAB PO PRN (17:45)
[2023-07-30] MEDS ORDERED: ACETAMINOPHEN TAB 650MG DOSE (2X325MG) PO PRN (17:45)
[2023-07-31 02:00] VITALS: BP 116/71; O2SAT 99
[2023-07-31 06:00] VITALS: BP 119/69
[2023-07-31] MEDS: IBUPROFEN 800 MG TAB PO PRN ×2 (06:33→20:26)
[2023-07-31 08:08] LABS: HEMATOCRIT 32.4 % (36.0-47.0); HEMOGLOBIN 10.8 g/dl (12.0-15.5); MEAN CORPUSCULAR HEMOGLOBIN 29.9 pg (27.0-33.0); MEAN CORPUSCULAR HGB CONC 33.3 g/dl (32.0-36.5); MEAN CORPUSCULAR VOLUME 89.8 fl (80.0-96.0); PLATELET COUNT, AUTOMATED 162 10^3/uL (150-450); RED BLOOD COUNT 3.61 10^6/uL (4.00-5.40); WHITE BLOOD COUNT 13.9 10^3/uL (4.0-10.0)
[2023-07-31] MEDS: PRENATAL VITAMINS CHEWABLE TABLET PO SCH (08:30)
[2023-07-31 10:00] VITALS: BP 122/72; O2SAT 98
[2023-07-31 14:00] VITALS: BP 109/71; O2SAT 99
[2023-07-31 18:00] VITALS: BP 111/66; O2SAT 97
[2023-08-01] MEDS: PRENATAL VITAMINS CHEWABLE TABLET PO SCH (08:28)
[2023-08-01] MEDS: IBUPROFEN 800 MG TAB PO PRN (08:28)
[2023-08-01] MEDS ORDERED: MEASLES,MUMPS,RUBELLA VACCINE INJ (MMR-II) SC.IMMUN ONE (09:00)
[2023-08-01 10:00] VITALS: BP 118/69; O2SAT 99
== END 2023-08-01 13:06 | disposition home or self-care (01) | DRG 560 ==
LOC: M LDI 08:21 → M OBS 20:10
PROVIDERS: ADMIT Advanced Practice Midwife; ATTEND Advanced Practice Midwife
PROC: 10E0XZZ Delivery of Products of Conception, External Approach (ICD-10-PCS; principal; 2023-07-30)
PROC: 0HQ9XZZ Repair Perineum Skin, External Approach (ICD-10-PCS; 2023-07-30)
PROC: 3E033VJ Introduction of Other Hormone into Peripheral Vein, Percutaneous Approach (ICD-10-PCS; 2023-07-30)
PROC: 10907ZC Drainage of Amniotic Fluid, Therapeutic from Products of Conception, Via Natural or Artificial Opening (ICD-10-PCS; 2023-07-30)
DX: O70.0 First degree perineal laceration during delivery (principal); O99.824 Streptococcus B carrier state complicating childbirth; Z37.0 Single live birth; Z3A.39 39 weeks gestation of pregnancy

== ENCOUNTER → 2024-03-06 | Outpatient (REF) | payer BC ==
[~2024-03-06] MED LIST changes: +IRON65TA2 PO
== END ==
LOC: M PLALAB 09:08
PROVIDERS: ATTEND Advanced Practice Midwife
DX: Z01.419 Encounter for gynecological examination (general) (routine) without abnormal findings (principal)